=== PATIENT | male | born 1965 | race Caucasian/White ===

== ENCOUNTER 2017-09-01 16:42 | Observation (INO) | payer BC ==
[2017-09-01] MEDS ORDERED: ASPIRIN 81 MG PO STA (17:16)
--- NOTE | 2017-09-01 17:20 | ED ---
Chest Pain HPI - General Chief Complaint: Chest Pain Stated Complaint: chest pain Time Seen by Provider: 09/01/17 16:54 Source: patient, RN notes reviewed Mode of arrival: wheelchair Limitations: no limitations - History of Present Illness Initial Comments: This is a 51-year-old male with a benign past medical history other than smoking who resents with complaints of midsternal chest pain is started this morning his been going on all day he states right now is a 2/10 but it was as severe as 5-6/10 earlier it was sore and squeezing feeling. Nothing made it better nothing made it worse no shortness of breath. He does state he's been having some peripheral edema recently which goes down at night no leg pain however. No other complaints at this time no family history of heart disease. No other modifying factors at this time he's had no cough or phlegm production MD Complaint: chest pain - Related Data Home Medications Medication Instructions Recorded Confirmed Ibuprofen [Motrin Ib] 400 mg PO Q6H PRN 09/01/17 09/01/17 Allergies Allergy/AdvReac Type Severity Reaction Status Date / Time No Known Allergies Allergy Verified 09/01/17 17:30 Review of Systems ROS Statement: Those systems with pertinent positive or pertinent negative responses have been documented in the HPI. ROS Other: All systems not noted in ROS Statement are negative. EKG Findings - EKG Results: EKG: interpreted by QUEENIE, sinus rhythm (Sinus rhythm rate was 76. Interval 170 QRS duration 108 QT since QTC of 406/456 and complete right bundle-branch block. ) Past Medical History Past Medical History: No Reported History History of Any Multi-Drug Resistant Organisms: None Reported Past Surgical History: Cholecystectomy Additional Past Surgical History / Comment(s): right knee scope Past Psychological History: No Psychological Hx Reported Smoking Status: Current every day smoker Past Alcohol Use History: None Reported Past Drug Use History: None Reported General Exam - General Exam Comments Initial Comments: This is a well-developed well-nourished awake alert oriented times 3 male Limitations: no limitations General appearance: alert, in no apparent distress Head exam: Present: atraumatic, normocephalic, normal inspection Eye exam: Present: normal appearance, PERRL, EOMI. Absent: scleral icterus, conjunctival injection, periorbital swelling ENT exam: Present: normal exam, mucous membranes moist Neck exam: Present: normal inspection. Absent: tenderness, meningismus, lymphadenopathy Respiratory exam: Present: normal lung sounds bilaterally. Absent: respiratory distress, wheezes, rales, rhonchi, stridor Cardiovascular Exam: Present: regular rate, normal rhythm, normal heart sounds. Absent: systolic murmur, diastolic murmur, rubs, gallop, clicks GI/Abdominal exam: Present: soft, normal bowel sounds. Absent: distended, tenderness, guarding, rebound, rigid, bruit, pulsatile mass, hernia Extremities exam: Present: full ROM, normal capillary refill, pedal edema ( Trace edema bilaterally). Absent: tenderness, joint swelling, calf tenderness Back exam: Present: normal inspection Neurological exam: Present: alert, oriented X3, CN II-XII intact Psychiatric exam: Present: normal affect, normal mood Skin exam: Present: warm, dry, intact, normal color. Absent: rash Course Vital Signs 09/01/17 09/01/17 09/01/17 16:46 18:30 18:41 Temperature 98.1 F Pulse Rate 90 65 78 Respiratory 18 18 18 Rate Blood Pressure 135/81 121/71 121/77 O2 Sat by Pulse 95 97 99 Oximetry - Reevaluation(s) Reevaluation #1: 09/01/17 19:11 The patient did not get any relief from the initial nitroglycerin was given repeat was ordered as well as repeat EKG. Repeat EKG showed a sinus rhythm of 60. Interval 184 QRS duration 110 QT since QTC of 4:30/[address]-T wave changes essentially unchanged with her previous Chest Pain MDM - MDM The patient finds a get relief from the second nitroglycerin the pain is gone I did a long discussion with him as well as regarding the findings and the suspicion for coronary artery disease patient will be admitted for evaluation. Critical Care Time Critical Care Time: Yes Critical Care Time: 32 minutes critical care time which includes initial presentation with history physical labs x-rays several reevaluation the patient to responsive therapy admission orders discussed with the main physician and documentation of the above. Disposition Clinical Impression: Unstable angina pectoris, Chest pain Disposition: ADMITTED IP TO THIS [facility] Condition: Stable Referrals: Anastasiia Tanner MD [Primary Care Provider] - 1-2 days
[2017-09-01] MEDS: NITROGLYCERIN SL TABS 0.4 MG TAB SUBLINGUAL STA ×2 (17:24→18:50)
[2017-09-01 17:31] LABS: Basophils # (A) 0.1 k/uL (0-0.2); Basophils % (A) 1 %; Eosinophils # (A) 0.4 k/uL (0-0.7); Eosinophils % (A) 5 %; HCT 44.3 % (39.0-53.0); HGB 15.9 gm/dL (13.0-17.5); Lymphocytes # (A) 2.6 k/uL (1.0-4.8); Lymphocytes % (A) 34 %; MCH 32.7 pg (25.0-35.0); MCHC 35.9 g/dL (31.0-37.0); MCV 91.1 fL (80.0-100.0); Mean Platelet Volume 8.5; Monocytes # (A) 0.4 k/uL (0-1.0); Monocytes % (A) 6 %; Neutrophils # (A) 4.1 k/uL (1.3-7.7); Neutrophils % (A) 53 %; Platelet Count 124 k/uL (150-450); RBC 4.86 m/uL (4.30-5.90); RDW 14.4 % (11.5-15.5); WBC 7.7 k/uL (3.8-10.6)
--- NOTE | 2017-09-01 17:35 | XR ---
EXAMINATION TYPE: XR chest 2V DATE OF EXAM: 09/01/2017 COMPARISON: 07/29/2015 HISTORY: Chest pain TECHNIQUE: Frontal and lateral views of the chest are obtained. FINDINGS: Heart and mediastinum are normal. Lungs are clear. Diaphragm is normal. There are chest le ads. Bony thorax is intact. IMPRESSION: Normal chest. No change.
[2017-09-01 17:44] LABS: D-Dimer 0.52 mg/L FEU (<0.60)
[2017-09-01 17:45] LABS: Partial Thromboplastin Time 26.1 sec (22.0-30.0); Prothrombin Time 10.2 sec (9.0-12.0)
[2017-09-01 17:46] LABS: ALT 60 U/L (21-72); AST 33 U/L (17-59); Albumin 4.2 g/dL (3.5-5.0); Alkaline Phosphatase 60 U/L (38-126); Anion Gap 15 mmol/L; Blood Urea Nitrogen 14 mg/dL (9-20); Carbon Dioxide 26 mmol/L (22-30); Chloride 102 mmol/L (98-107); Glucose 103 mg/dL (74-99); Magnesium 1.8 mg/dL (1.6-2.3); Potassium 4.1 mmol/L (3.5-5.1); Sodium 143 mmol/L (137-145); Total Bilirubin 0.3 mg/dL (0.2-1.3)
[2017-09-01 17:57] LABS: Creatine Kinase 74 U/L (55-170)
[2017-09-01 18:10] LABS: Creatine Kinase MB 0.5 ng/mL (0.0-2.4); Troponin I <0.012 ng/mL (0.000-0.034)
[2017-09-01] MEDS ORDERED: NITROGLYCERIN SL TABS 0.4 MG TAB SUBLINGUAL STA (18:14)
[2017-09-01] MEDS ORDERED: HEPARIN SODIUM,PORCINE 5,000 UNIT/ML 1 ML VIAL IV ONE (19:09)
[2017-09-01] MEDS ORDERED: NITROGLYCERIN OINT 1 INCH/GM PACKET TOPICAL STA (19:09)
[2017-09-01] MEDS ORDERED: HEPARIN SODIUM,PORCINE/D5W PMX 25,000 UNIT in DEXTROSE/WATER 1 500ML.BAG IV SCH (19:15)
[2017-09-01] MEDS ORDERED: NITROGLYCERIN SL TABS 0.4 MG TAB SUBLINGUAL PRN (19:17)
[2017-09-01] MEDS ORDERED: SODIUM CHLORIDE 0.9% 1,000 ML IV SCH (19:30)
[2017-09-01] MEDS ORDERED: NICOTINE 21MG/24HR PATCH TRANSDERM STA (20:04)
[2017-09-01 22:12] VITALS: BMI 39.9
[2017-09-02 00:17] LABS: Creatine Kinase 60 U/L (55-170)
[2017-09-02 00:30] LABS: Creatine Kinase MB 0.4 ng/mL (0.0-2.4); Troponin I <0.012 ng/mL (0.000-0.034)
[2017-09-02 03:36] LABS: Cholesterol 89 mg/dL (<200); HDL Cholesterol 24 mg/dL (40-60); LDL Cholesterol,Calculated 26 mg/dL (0-99); Triglycerides 194 mg/dL (<150)
[2017-09-02 06:36] LABS: Creatine Kinase 60 U/L (55-170)
[2017-09-02 06:48] LABS: Creatine Kinase MB 0.3 ng/mL (0.0-2.4); Troponin I <0.012 ng/mL (0.000-0.034)
[2017-09-02] MEDS: IBUPROFEN 400 MG TAB PO PRN ×2 (06:54→12:20)
[2017-09-02] MEDS ORDERED: ASPIRIN 325 MG TAB PO SCH (09:00)
[2017-09-02] MEDS ORDERED: ASPIRIN 81 MG PO SCH (09:00)
[2017-09-02] MEDS ORDERED: DOBUTamine DRIP for NUC MED 500 MG in DEXTROSE/WATER 1 250ML.BAG IV ONE (10:01)
--- NOTE | 2017-09-02 11:37 | P.CRDCN ---
History of Present Illness History of present illness: Mr. Engle is a pleasant 51-year-old male past medical history significant for chronic tobacco use. He denies history of coronary artery disease, hypertension, dyslipidemia or diabetes mellitus. We have been asked to see him in consultation for chest pain. He states he started feeling chest pain described as tight feeling across the anterior chest wall. No radiation to arms , back, neck or jaw. Associated with mild shortness of breath. Denies nausea, vomiting, diaphoresis, dizziness or palpitations. Pain started when he woke up for work yesterday and lasted all day while he was at work. Nothing made the pain worse or better it was just constant all day until he arrived in ED and received SL nitro. Nitropaste was applied but removed secondary to a headache last night. No further symptoms of chest pain since. EKG reveals sinus mechanism with right bundle branch block pattern with no acute ST or T-wave changes. No change from previous EKG. Chest xray is negative for an acute cardiopulmonary process. Laboratory data reviewed, hemoglobin 15.9, platelets 124, d-dimer 0.52, sodium 143, potassium 4.1, magnesium 1.8, creatinine 0.78, cardiac enzymes negative 3 , LDL 26. He takes no daily medications. Review of Systems At the time of my exam: CONSTITUTIONAL: Denies fever. Denies chills. EYES: Denies blurred vision. Denies vision changes. Denies eye pain. EARS, NOSE, MOUTH & THROAT: Denies headache. Denies sore throat. Denies ear pain. CARDIOVASCULAR: Denies chest pain. Denies shortness of breath. Denies orthopnea. Denies PND. Denies palpitations. RESPIRATORY: Denies cough. GASTROINTESTINAL: Denies abdominal pain. Denies diarrhea. Denies constipation. Denies nausea. Denies vomiting. MUSCULOSKELETAL: Denies myalgias. INTEGUMENTARY: Denies pruitis. Denies rash. NEUROLOGIC: Denies numbness. Denies tingling. Denies weakness. PSYCHIATRIC: Denies anxiety. Denies depression. ENDOCRINE: Denies fatigue. Denies weight change. Denies polydipsia. Denies polyurina. GENITOURINARY: Denies burning, hematuria or urgency with micturation. HEMATOLOGIC: Denies history of anemia. Denies bleeding. Past Medical History Past Medical History: No Reported History History of Any Multi-Drug Resistant Organisms: None Reported Past Surgical History: Cholecystectomy Additional Past Surgical History / Comment(s): right knee scope Past Anesthesia/Blood Transfusion Reactions: No Reported Reaction Past Psychological History: No Psychological Hx Reported Smoking Status: Current every day smoker Past Alcohol Use History: None Reported Past Drug Use History: None Reported - Past Family History Father Family Medical History: Cancer Additional Family Medical History / Comment(s): colon cancer - 62y/o passed Mother Family Medical History: Cancer, Diabetes Mellitus Additional Family Medical History / Comment(s): breast cancer Medications and Allergies Home Medications Medication Instructions Recorded Confirmed Type Ibuprofen [Motrin Ib] 400 mg PO Q6H PRN 09/01/17 09/01/17 History Allergies Allergy/AdvReac Type Severity Reaction Status Date / Time No Known Allergies Allergy Verified 09/01/17 17:30 Physical Exam Vitals: Vital Signs Temp Pulse Pulse Resp BP BP Pulse Ox 09/02/17 03:40 97.8 F 64 16 112/61 95 09/02/17 03:27 62 16 09/02/17 00:00 98.5 F 75 16 111/50 96 09/01/17 22:00 76 16 09/01/17 21:38 98.7 F 78 16 148/62 98 09/01/17 20:35 68 18 152/91 95 09/01/17 18:41 78 18 121/77 99 09/01/17 18:30 65 18 121/71 97 09/01/17 16:46 98.1 F 90 18 135/81 95 Intake and Output 09/01/17 09/02/17 09/02/17 22:59 06:59 14:59 Intake Total 141.333 Balance 141.333 Intake: Intake, IV Titration 141.333 Amount Heparin Sodium,Porcine/ 141.333 D5w Pmx 25,000 unit In Dextrose/Water 1 500ml. bag @ 6.89 UNITS/KG/HR 20 mls/hr IV .Q24H [facility] Rx#: [id number] Other: Voiding Method Toilet Toilet # Voids 1 3 Weight 145.15 kg Blood pressure 109/61 heart rate 70 afebrile maintaining oxygen saturation on room air GENERAL: This is a 51-year-old male in no apparent distress at the time of my examination. Morbidly obese. HEENT: Head is atraumatic, normocephalic. Pupils are equal, round. Sclerae anicteric. Conjunctivae are clear. Mucous membranes of the mouth are moist. Neck is supple. There is no jugular venous distention. No carotid bruit is heard. LUNGS: Clear to auscultation no wheezes, rales or rhonchi. No chest wall tenderness is noted on palpation or with deep breathing. HEART: Regular rate and rhythm without murmurs, rubs or gallops. S1 and S2 heard. ABDOMEN: Soft, nontender. Bowel sounds are heard. No organomegaly noted. EXTREMITIES: No evidence of peripheral edema and no calf tenderness noted. VASCULAR: Radial and dorsalis pedis pulses palpated, no evidence of clubbing. NEUROLOGIC: Patient is awake, alert and oriented x3. Results 09/01/17 17:20 09/01/17 17:20 Cardiac Enzymes 09/01/17 09/01/17 09/01/17 Range/Units 17:20 17:20 23:38 AST 33 (17-59) U/L CK-MB (CK-2) 0.5 0.4 (0.0-2.4) ng/mL Troponin I <0.012 <0.012 (0.000-0.034) ng/mL 09/02/17 Range/Units 05:50 AST (17-59) U/L CK-MB (CK-2) 0.3 (0.0-2.4) ng/mL Troponin I <0.012 (0.000-0.034) ng/mL Coagulation 09/01/17 09/02/17 Range/Units 17:20 02:33 PT 10.2 (9.0-12.0) sec APTT 26.1 28.5 (22.0-30.0) sec Lipids 09/02/17 Range/Units 02:33 Triglycerides 194 H (<150) mg/dL Cholesterol 89 (<200) mg/dL HDL Cholesterol 24 L (40-60) mg/dL CBC 09/01/17 Range/Units 17:20 WBC 7.7 (3.8-10.6) k/uL RBC 4.86 (4.30-5.90) m/uL Hgb 15.9 (13.0-17.5) gm/dL Hct 44.3 (39.0-53.0) % Plt Count 124 L (150-450) k/uL Comprehensive Metabolic Panel 09/01/17 Range/Units 17:20 Sodium 143 (137-145) mmol/L Potassium 4.1 (3.5-5.1) mmol/L Chloride 102 (98-107) mmol/L Carbon Dioxide 26 (22-30) mmol/L BUN 14 (9-20) mg/dL Creatinine 0.78 (0.66-1.25) mg/dL Glucose 103 H (74-99) mg/dL Calcium 9.0 (8.4-10.2) mg/dL AST 33 (17-59) U/L ALT 60 (21-72) U/L Alkaline Phosphatase 60 (38-126) U/L Total Protein 7.0 (6.3-8.2) g/dL Albumin 4.2 (3.5-5.0) g/dL Current Medications Generic Name Dose Route Start Last Admin Trade Name Freq PRN Reason Stop Dose Admin Sodium Chloride 1,000 mls @ 20 mls/hr 09/01/17 19:30 09/01/17 20:15 Saline 0.9% IV 20 mls/hr .Q24H [facility] Administration Ibuprofen 400 mg 09/01/17 19:19 09/02/17 06:54 Motrin PO 400 mg Q6H PRN Administration Mild Pain Nitroglycerin 0.4 mg 09/01/17 19:17 Nitrostat SUBLINGUAL Q5M PRN Chest Pain Intake and Output 09/01/17 09/02/17 09/02/17 22:59 06:59 14:59 Intake Total 141.333 Balance 141.333 Intake: Intake, IV Titration 141.333 Amount Heparin Sodium,Porcine/ 141.333 D5w Pmx 25,000 unit In Dextrose/Water 1 500ml. bag @ 6.89 UNITS/KG/HR 20 mls/hr IV .Q24H [facility] Rx#: [id number] Other: Voiding Method Toilet Toilet # Voids 1 3 Weight 145.15 kg 09/01/17 17:20 09/01/17 17:20 Assessment and Plan Assessment: ASSESSMENT 1. Chest pain, atypical. An acute coronary event has been ruled out with no EKG evidence of ischemia and normal cardiac enzymes. 2. Chronic tobacco use and dependence 3. Morbid obesity PLAN Obtain 2D echocardiogram and doppler study to assess cardiac structure and function. Perform dobutamine stress echocardiogram to assess for stress induced cardiac ischemia. Smoking cessation recommended as well as lifestyle modifications for weight loss. Thank you kindly for this consultation. Nurse Practitioner note has been reviewed, I agree with a documented findings and plan of care. Patient was seen and examined.
--- NOTE | 2017-09-02 12:05 | ECHOF ---
Referral Reason:CAD MEASUREMENTS -------- HEIGHT: 190.5 cm WEIGHT: 145.1 kg BP: 112/61 RVIDd: 3.4 cm (< 3.3) IVSd: 1.3 cm (0.6 - 1.1) LVIDd: 4.7 cm (3.9 - 5.3) LVPWd: 1.3 cm (0.6 - 1.1) IVSs: 1.8 cm LVIDs: 3.4 cm LVPWs: 1.9 cm LA Diam: 3.9 cm (2.7 - 3.8) LAESV Index (A-L): 26.77 ml/m Ao Diam: 3.5 cm (2.0 - 3.7) AV Cusp: 2.5 cm (1.5 - 2.6) MV EXCURSION: 18.438 mm (> 18.000) MV EF SLOPE: 107 mm/s (70 - 150) EPSS: 1.0 cm MV E Francois: 0.90 m/s MV DecT: 193 ms MV A Francois: 0.79 m/s MV E/A Ratio: 1.15 FINDINGS -------- Sinus rhythm. This was a technically adequate study. The left ventricular size is normal. There is mild concentric left ventricular hypertrophy. Overa ll left ventricular systolic function is normal with, an EF between 55 - 60 %. The right ventricle is mildly enlarged. Normal LA size by volume 22+/-6 ml/m2. The right atrium is normal in size. The aortic valve is trileaflet and appears structurally normal. The mitral valve is normal. The tricuspid valve appears structurally normal. Trace/mild (physiologic) pulmonic regurgitation. The aortic root size is normal. The inferior vena cava is dilated with no significant inspiratory collapse which is consistent estima ayaz right atrial pressure of >15 mmHg. There is no pericardial effusion. CONCLUSIONS -------- 1. Sinus rhythm. 2. This was a technically adequate study. 3. The left ventricular size is normal. 4. There is mild concentric left ventricular hypertrophy. 5. Overall left ventricular systolic function is normal with, an EF between 55 - 60 %. 6. The right ventricle is mildly enlarged. 7. Normal LA size by volume 22+/-6 ml/m2. 8. The right atrium is normal in size. 9. The aortic valve is trileaflet and appears structurally normal. 10. The mitral valve is normal. 11. The tricuspid valve appears structurally normal. 12. Trace/mild (physiologic) pulmonic regurgitation. 13. The aortic root size is normal. 14. The inferior vena cava is dilated with no significant inspiratory collapse which is consistent es timated right atrial pressure of >15 mmHg. 15. There is no pericardial effusion. MANAGER STARS: Veronica Lauren RDCS
[2017-09-02 12:14] VITALS: BP 107/64; PULSE 75; RESP 16; TEMP 98.1
--- NOTE | 2017-09-02 12:59 | ECHOS ---
STRESS ECHOCARDIOGRAM INDICATIONS: Chest pain. MEDICATIONS: None. BASELINE HEART RATE: 76 BASELINE BLOOD PRESSURE: 151/70 MAXIMUM HEART RATE: 150 MAXIMUM BLOOD PRESSURE: 146/65 85% MPHR: 145 100% MPHR: 171 MAXIMUM STAGE REACHED: 3 TOTAL EXERCISE TIME: 7:00 CLINICAL INFORMATION: Patient was given dobutamine infusion according to the standard protocol. Peak heart rate of 150 was achieved. Maximum blood pressure of 146/65 mmHg was noted. Resting EKG shows normal sinus rhythm with normal VT interval and QRS duration and normal ST-T waves. No ST-segment depression suggestive of ischemia is noted. Patient did not complain of any chest pain during the test. Baseline echocardiographic images reveals normal left ventricular chamber size with normal left ventricular systolic function. At the peak dose of dobutamine infusion, normal increase and contractility is noted. MMODL / IJN: [id number] /
--- NOTE | 2017-09-02 15:29 | P.HPIM ---
History of Present Illness H&P Date: 09/02/17 Chief Complaint: Chest pain HISTORY AND PHYSICAL AND DISCHARGE SUMMARY: This is a 51-year-old male patient of Dr. Tanner with no significant past medical history. Patient states that yesterday morning he woke up with chest pain in the center of his chest. He denies any radiation to his arm or neck. He denies any burping or anything that relieves the pain. He may have had a little bit of sweats according to his . He did have a headache and a little shortness of breath. He denied any increased pain with activity or recent chest pain with activity. No lightheadedness or dizziness. Troponins have been negative on 3 draws. Triglycerides 194, cholesterol 89, LDL 26, HDL 24. Patient has been seen in consultation by cardiology. He underwent a dobutamine stress echo which was negative and patient has been cleared for discharge by cardiology. Echocardiogram reveals EF of 55-60% with mild concentric left hypertrophy. Chest x-ray was a normal chest. No change. Review of Systems All systems: negative Constitutional: Reports sweats, Denies anorexia, Denies chills, Denies fatigue, Denies fever, Denies lethargy, Denies malaise, Denies poor appetite, Denies weakness, Denies weight loss Eyes: denies blurred vision, denies pain Ears, nose, mouth and throat: Reports headache, Denies dental pain, Denies dysphagia, Denies mouth pain, Denies sore throat Cardiovascular: Reports chest pain, Denies decreased exercise tolerance, Denies dyspnea on exertion, Denies leg edema, Denies lightheadedness, Denies palpitations, Denies paroxysmal nocturnal dyspnea, Denies shortness of breath, Denies syncope Respiratory: Denies congestion, Denies cough, Denies cough with sputum, Denies dyspnea, Denies excessive sputum, Denies hemoptysis, Denies home oxygen, Denies wheezing Gastrointestinal: Denies abdominal pain, Denies diarrhea, Denies loss of appetite, Denies nausea, Denies vomiting Genitourinary: Denies dysuria, Denies urinary frequency Musculoskeletal: Denies frequent falls, Denies gait dysfunction, Denies myalgias Integumentary: Denies pruritus, Denies rash, Denies wounds Neurological: Denies gait dysfunction, Denies numbness, Denies weakness Psychiatric: Denies anxiety, Denies depression Endocrine: Denies fatigue, Denies weight change Past Medical History Past Medical History: No Reported History History of Any Multi-Drug Resistant Organisms: None Reported Past Surgical History: Cholecystectomy Additional Past Surgical History / Comment(s): right knee scope Past Anesthesia/Blood Transfusion Reactions: No Reported Reaction Past Psychological History: No Psychological Hx Reported Smoking Status: Current every day smoker Past Alcohol Use History: None Reported Additional Past Alcohol Use History / Comment(s): Vision is a smoker one pack per day for 20 years. He denies any alcohol use. He lives at home with his and children. Past Drug Use History: None Reported - Past Family History Father Family Medical History: Cancer Additional Family Medical History / Comment(s): colon cancer - 62y/o passed Mother Family Medical History: Cancer, Diabetes Mellitus Additional Family Medical History / Comment(s): breast cancer Medications and Allergies Home Medications Medication Instructions Recorded Confirmed Type Ibuprofen [Motrin Ib] 400 mg PO Q6H PRN 09/01/17 09/01/17 History Varenicline [Chantix Starter Pack] 0.5 mg PO DIRECTED #53 tab 09/02/17 Rx Allergies Allergy/AdvReac Type Severity Reaction Status Date / Time No Known Allergies Allergy Verified 09/01/17 17:30 Physical Exam Vitals: Vital Signs Temp Pulse Pulse Resp BP BP Pulse Ox 09/02/17 08:00 97.9 F 70 18 109/61 95 09/02/17 03:40 97.8 F 64 16 112/61 95 09/02/17 03:27 62 16 09/02/17 00:00 98.5 F 75 16 111/50 96 09/01/17 22:00 76 16 09/01/17 21:38 98.7 F 78 16 148/62 98 09/01/17 20:35 68 18 152/91 95 09/01/17 18:41 78 18 121/77 99 09/01/17 18:30 65 18 121/71 97 09/01/17 16:46 98.1 F 90 18 135/81 95 Intake and Output 09/01/17 09/02/17 09/02/17 22:59 06:59 14:59 Intake Total 141.333 Balance 141.333 Intake: Intake, IV Titration 141.333 Amount Heparin Sodium,Porcine/ 141.333 D5w Pmx 25,000 unit In Dextrose/Water 1 500ml. bag @ 6.89 UNITS/KG/HR 20 mls/hr IV .Q24H [facility] Rx#: [id number] Other: Voiding Method Toilet Toilet Toilet # Voids 1 3 Weight 145.15 kg Gen: This is a 51-year-old male patient. He is sitting on the edge of the bed and appears to be comfortable and in no acute distress. HEENT: Head is atraumatic, normocephalic. Pupils equal, round. Sclerae is anicteric. NECK: Supple. No JVD. No lymphadenopathy. No thyromegaly. LUNGS: Diminished breath sounds with limited air exchange. No wheezes or rhonchi. No intercostal retractions. HEART: Regular rate and rhythm. No murmur. ABDOMEN: Soft. Bowel sounds are present. No masses. No tenderness. EXTREMITIES: No pedal edema. No calf tenderness. NEUROLOGICAL: Patient is awake, alert and oriented x3. Cranial nerves 2 through 12 are grossly intact. Results CBC & Chem 7: 09/01/17 17:20 09/01/17 17:20 Labs: Abnormal Lab Results - Last 24 Hours (Table) 09/01/17 09/01/17 09/02/17 Range/Units 17:20 17:20 02:33 Plt Count 124 L (150-450) k/uL Glucose 103 H (74-99) mg/dL Triglycerides 194 H (<150) mg/dL HDL Cholesterol 24 L (40-60) mg/dL Thrombosis Risk Factor Assmnt - DVT/VTE Prophylaxis DVT/VTE Prophylaxis: Pharmacologic Prophylaxis ordered - Choose All That Apply Each Factor Represents 1 point: Age 41-60 years, Obesity (BMI >25) Thrombosis Risk Factor Assessment Total Risk Factor Score: 2 Thrombosis Risk Factor Assessment Level: Low Risk Assessment and Plan Plan: 1. Chest pain secondary to bronchospasms with possible early COPD. Patient has been encouraged to stop smoking. 2. Tobacco use and dependence. 3. Thrombocytopenia with platelet count 124. Patient can have follow-up with his primary care physician.. Patient placed on the observation unit. Discharge plan: Home Impression and plan of care have been directed as dictated by the signing physician. Izabella Padilla nurse practitioner acting as scribe for signing physician.
== END 2017-09-02 13:45 | disposition home or self-care (01) ==
LOC: EC 16:42 → 3OBS 19:17
PROVIDERS: ADMIT Internal Medicine; ATTEND Internal Medicine
DX: R07.89 Other chest pain (principal); E66.01 Morbid (severe) obesity due to excess calories; Z68.41 Body mass index [BMI] 40.0-44.9, adult; Z71.6 Tobacco abuse counseling; D69.6 Thrombocytopenia, unspecified; I20.0 Unstable angina; F17.210 Nicotine dependence, cigarettes, uncomplicated; Z83.3 Family history of diabetes mellitus; Z80.3 Family history of malignant neoplasm of breast; Z80.0 Family history of malignant neoplasm of digestive organs; Z90.49 Acquired absence of other specified parts of digestive tract
CPT/HCPCS: 96366 ×2; 96376; 96365; 99285; 36415; 93005; 93306; 93351; 85379; 83880; 80061; 80053; 82550 ×2; 82553 ×2; 83735; 84484 ×2; 85025; 85610; 85730 ×2; 71046; G0378 ×2; S4990; J1250; J1644 ×2

== ENCOUNTER → 2022-08-05 | Outpatient (CLI) | payer BC ==
--- NOTE | 2022-08-06 08:34 | CT ---
EXAMINATION TYPE: CT brain wo con DATE OF EXAM: 08/05/2022 COMPARISON: None HISTORY: Headaches, post covid. CT DLP: 1202.1 mGycm Automated exposure control for dose reduction was used. FINDINGS: Jugular system and sulci overlying the patient's age and there is no evidence of acute intracranial n arrowing. Cerebellar tonsils are low-lying. Sella appears appearance. Mild cavernous orbits are symmetric. Changes of mild chronic sinusitis. Cesar varium is intact. IMPRESSION: 1. NO ACUTE PROCESS. THERE IS MILD FULLNESS OF THE LATERAL MARGIN CAVERNOUS SINUS WHICH MAY BE CONGEN ITAL. RECOMMEND FOLLOW-UP MRI WITH CONTRAST 2. LOW-LYING CEREBELLAR TONSILS. NO TONSILLAR BEAKING. CEREBELLAR TONSILS EXTEND APPROXIMATELY 1 TO 2 MM BELOW FORAMEN MAGNUM
== END | disposition home or self-care (01) ==
LOC: RADCTMAIN 18:11
PROVIDERS: ATTEND Family Medicine
DX: R51.9 Headache, unspecified (principal); Q04.8 Other specified congenital malformations of brain; Z86.16 Personal history of COVID-19
CPT/HCPCS: 70450

== ENCOUNTER → 2022-09-16 | Outpatient (CLI) | payer BC ==
--- NOTE | 2022-09-16 20:19 | MR ---
EXAMINATION TYPE: MR brain/cspine wo/w DATE OF EXAM: 09/16/2022 7:31 PM COMPARISON: NONE HISTORY: Abnormal CT, cerebellar tonsillar ectopia. Headaches, fatigue CONTRAST: Patient received 15 mL intravenous Gadavist gadolinium contrast. Multiplanar and multispin-echo imaging of the brain was performed . Pre and post contrast enhanced i mages are obtained. The ventricles, basal cisterns and sulci overlying the cerebral convexities are mildly enlarged. There is evidence of mild periventricular white matter ischemic demyelination. Remote deep white matter insults are also noted. No acute edema is seen on diffusion weighted imaging. There is no evidence for midline shift or mass effect. Acute intracranial hemorrhage or extra-axial collection is not evident. No enhancing lesions are seen. The cerebellar tonsils are low-lying without evidence for Chiari type I malformation. The paranasal sinuses and mastoid air cells are well-aerated. IMPRESSION: Age-related atrophic and chronic small vessel ischemic change. No acute intracranial process at this time. The cerebellar tonsils are low-lying without evidence for Chiari type I malformation. EXAMINATION TYPE: MR brain/cspine wo/w DATE OF EXAM: 09/16/2022 7:31 PM COMPARISON: NONE HISTORY: Abnormal CT, cerebellar tonsillar ectopia. Headaches, fatigue CONTRAST: The patient was injected with 15 mL intravenous Gadavist gadolinium contrast. Multiplanar MultiSpin echo imaging of the cervical spine was performed. C2-C3: No evidence for degenerative disc disease. No disc bulge/herniation or protrusion. No Canal stenosis. Foramina are patent bilaterally. C3-C4: No evidence for degenerative disc disease. No disc bulge/herniation or protrusion. No Canal stenosis. Foramina are patent bilaterally. C4-C5: No evidence for degenerative disc disease. No disc bulge/herniation or protrusion. No Canal stenosis. Foramina are patent bilaterally. C5-C6: No evidence for degenerative disc disease. No disc bulge/herniation or protrusion. No Canal stenosis. Foramina are patent bilaterally. C6-C7:No evidence for degenerative disc disease. No disc bulge/herniation or protrusion. No Canal s tenosis. Foramina are patent bilaterally. C7-T1: No evidence for degenerative disc disease. No disc bulge/herniation or protrusion. No Canal stenosis. Foramina are patent bilaterally. No cervical spine fracture. There is normal alignment. Cervical spinal cord is of normal signal. T he cerebellar tonsils are low-lying without evidence for Chiari type I malformation. No pathologic enhancement. IMPRESSION: 1. Normal evaluation of the cervical spine. 2.The cerebellar tonsils are low-lying without evidence for Chiari type I malformation.
== END | disposition home or self-care (01) ==
LOC: RADMRIMAIN 17:25
PROVIDERS: ATTEND Family Medicine
DX: I67.82 Cerebral ischemia (principal); Q04.8 Other specified congenital malformations of brain; G31.9 Degenerative disease of nervous system, unspecified
CPT/HCPCS: 70553; 72156; A9585